=== PATIENT | female | born 1950 | race Two or more races ===

== ENCOUNTER → 2019-12-07 | Outpatient (CLI) | payer OTHER | END | disposition home or self-care (01) | LOC: OFIC 805 13:29 | PROVIDERS: ATTEND Otolaryngology Otology & Neurotology | DX: H90.3 Sensorineural hearing loss, bilateral (principal); R42 Dizziness and giddiness ==

== ENCOUNTER 2020-01-02 13:22 | Outpatient (CLI) | payer OTHER | END 2020-01-02 14:20 | disposition home or self-care (01) | LOC: OFIC 805 13:22 | PROVIDERS: ATTEND Otolaryngology Otology & Neurotology | DX: H90.3 Sensorineural hearing loss, bilateral (principal); R42 Dizziness and giddiness ==